=== PATIENT | female | born 1980 | race Caucasian/White ===

== ENCOUNTER 2017-07-29 07:23 | Day surgery (SDC) | payer BC, SELFPAY ==
--- NOTE | 2017-07-28 17:41 | PCM.HP.BLA ---
History and Physical Date of Admission: 07/29/17 HISTORY OF PRESENT ILLNESS: This is a 37-year-old woman, who presents with a recent flare up of right inguinal hidradenitis with extension into the vulval area. She had surgical excision back in 05/03. She states she noticed increasing nodularity and pain in this area near her previous scar. She denies any recent drainage. She denies any fever. Denies any trauma. She presents at this time for further evaluation and treatment. PAST MEDICAL HISTORY: Right inguinal hidradenitis. PAST SURGICAL HISTORY: Surgical preparation right inguinal wound with excision hidradenitis (8 cm2) - 04/26/14 MEDICATIONS: None. ALLERGIES: None. SOCIAL HISTORY: The patient smokes. The patient does not drink alcohol. The patient does not use aspirin. The patient does not use ibuprofen. FAMILY HISTORY: Positive for skin cancer. Also positive for colon cancer, cervical cancer, breast cancer. REVIEW OF SYSTEMS: GENERAL: Complains of fatigue. Denies fever and weight loss. EYES: Denies eye pain. ENT: Denies nasal congestion or sore throat. CARDIOVASCULAR: Complains of fatigue. Denies chest pain, lightheadedness and shortness of breath with exertion. RESPIRATORY: Denies cough and shortness of breath. The patient is a smoker. GASTROINTESTINAL: Denies nausea, vomiting, diarrhea or constipation. GENITOURINARY: Denies hematuria and urinary frequency. MUSCULOSKELETAL: Denies joint pain, back pain, stiffness, muscle weakness or arthritis. INTEGUMENTARY: Denies skin cancer. She has recent flare up of hidradenitis in the right inguinal area with extension into the vulval area. She has family history of skin cancer. NEUROLOGIC: Denies poor balance, headaches and weakness. PSYCHOLOGICAL: Denies anxiety and depression. ENDOCRINE: Denies excessive thirst or urination. Has family history of breast cancer. HEMATOLOGIC: Denies abnormal bruising and fevers. Denies anemia. PHYSICAL EXAMINATION: GENERAL: Alert and oriented. HEENT: Pupils equal, round and reactive to light. Extraocular muscles intact. Throat is clear. NECK: Supple. Nontender. No cervical adenopathy. LUNGS: Clear to auscultation. HEART: Regular rate and rhythm. ABDOMEN: Soft, nondistended. In the right inguinal area with extension into the vulval area is an area of tenderness and induration and nodularity. It measures 2.5 cm. It is located near her previous scar. No evidence of cellulitis, fluctuance or purulent drainage. EXTREMITIES: Full range of motion. No axillary adenopathy. No inguinal adenopathy. NEUROLOGIC: Cranial nerves II through XII grossly intact. IMPRESSION: 1. Recurrent right inguinal hidradenitis. 2. Recurrent right vulval hidradenitis. 3. Family history of skin cancer. 4. Smoker. PLAN: Recommended to the patient that we excise this area of recurrent hidradenitis in the right inguinal area and right vulval area. The previous scar may need to be excised as well. She has extension into the right vulval area and this area of hidradenitis will be excised as well. Will send tissue to pathology for analysis to rule out carcinoma. We also send tissue to microbiology for culture. A positive culture will necessitate antibiotic therapy. We will leave the wound open initially and proceed with wound care with a silver-type dressing or the wound VAC. After discharge, she can [facility]. If there is a plateau in the healing process, we can proceed with delayed closure with skin grafting. We will schedule the surgery under general anesthesia with an overnight stay in the hospital. The patient was informed of the risks and complications of the procedure including alternatives of surgery. These were discussed with her personally. She voiced understanding and wished to proceed. Some of the risks and complications were included in a form from the [employer]. I encouraged the patient to stop smoking as it may have deleterious effects on wound healing.
--- NOTE | 2017-07-29 | HID_PTH ---
PATIENT: JOSE FRANCISCO FRANCISCO LOC: [facility] – [place] U#:[id number] AGE/SX: 36/F ROOM: RE07/29/[address]: Dr. Best Mackey MD : [id number] BED: DIS: 07/29/2017 SPEC #: [id number] RECD: 07/29/17 14:40 STATUS: TAMMY EMETERIO #: [id number] IVON: 07/29/17 00:[address]: Best Mackey DEPT: SURGICAL PATHOLOGY RECD BY: Cecil Alarcon ENTERED: 07/29/17 14:41 SP TYPE: Hidradenit OTHR DR: Dr. Juancho Koch MD Tissues: Inguinal region, NOS Procedures: Special Stain Group I Surgery Specimen Level III AFB Stain (control) GMS Stain (control) HEADER OPERATION: Excision hidradenitis, right inguinal area extending into right vulva PRE-OP DIAGNOSIS: Recurrent right inguinal/vulval hidradenitis TISSUE SUBMITTED: Right inguinal/vulval hidradenitis MICROSCOPIC DIAGNOSIS Right inguinal/vulval hidradenitis: Skin with underlying tissue with acute and chronic inflammation and foreign body giant cell reaction. Special stains for acid fast bacilli and fungi are negative for organisms; matched controls are appropriate. MURRAY:milad 07/30/17 MICROSCOPIC DESCRIPTION Slides are reviewed. GROSS DESCRIPTION Received in fixative is one container labeled with the patient's name and designated right inguinal/vulval hidradenitis. The specimen consists of a piece of skin with underlying tissue measuring 3 x 0.5 cm and up to 3 cm in width. The specimen is bisected and do not reveal any mass lesion. The specimen is entirely submitted in two cassettes. / MURRAY:milad 07/29/17 TC:2 CPT: 14841, 32327 x2
[2017-07-29 07:50] LABS: Internal QC Validated? YES +Cl - CLEAR BKGD
[2017-07-29 07:51] LABS: Pregnancy, Urine Negative Negative
[2017-07-29 07:58] VITALS: BP 104/58; PULSE 64; RESP 14; TEMP 36.7; O2SAT 99; BMI 28.8
[2017-07-29] MEDS: Cefazolin 2 GM in 0.9% Normal Saline 100 ML IV (10:00)
[2017-07-29 11:08] VITALS: BP 104/58; BP 110/66; PULSE 75; RESP 16; TEMP 36.8; O2SAT 94
--- NOTE | 2017-07-29 11:09 | OP.PN_ITS ---
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 Recurrent right inguinal hidradenitis. 2. Recurrent right vulval hidradenitis. 3. Family history of skin cancer. 4. Smoker. Post-Operative Diagnosis: Same. Surgery/Procedure Performed:: 1. Excision recurrent hidradenitis right inguinal area with 7 cm layered closure. 2. Excision recurrent hidradenitis right vulval area (involving mons pubis and genitocrural area) with partial vulvectomy. Description of Surgical Findings:: This is a 37-year-old woman, who presents with a recent flare up of right inguinal hidradenitis with extension into the vulval area. She had surgical excision back in 05/03. She states she noticed increasing nodularity and pain in this area near her previous scar. She denies any recent drainage. She denies any fever. Denies any trauma. Today the patient underwent excision recurrent hidradenitis right inguinal area with 7 cm layered closure and excision recurrent hidradenitis right vulval area (involving mons pubis and genitocrural area) with partial vulvectomy. Estimated Blood Loss: 20 ml. Specimen's removed: Recurrent hidradenitis right inguinal area and vulval area to Pathology and Microbiology. Drains: None. Type of Anesthesia:: General - Admit VTE Documentation VTE Present on Admission: No VTE Mechan Device Prophylaxis: SCD's VTE Pharm Prophylaxis ordered?: No
[2017-07-29 11:15] VITALS: BP 104/58; BP 98/66; PULSE 59; RESP 16; O2SAT 96
--- NOTE | 2017-07-29 11:15 | PCM.DC ---
You will use the following diet at home:: No restrictions Discharge Activity: May not drive while taking narcotic pain medications., May Shower - in two days. May shower in (days): 2 May resume sexual activity in: 10-14 days Weight Bearing Status: Weight bearing as tolerated Call your doctor if your incision/area has: Continuous Slow Oozing, Sudden Increased Bleeding, Increased Pain/ Swelling, Increased Redness, Foul Smelling Discharge, Swelling at the incision site Call your doctor if you observe: Fever of 101 or Higher, Coldness, Increased Pain, Shortness of breath, Chest pain, Calf discomfort, Uncontrolled pain Suture Line Care: - - dry dressings daily. Change Dressing in (Days):: 1 - dry dressings daily. Cleanse incision/area with: - - may get incision wet in the shower in two days. Allergies/Adverse Reactions: Allergies No Known Allergies Allergy (Verified 07/22/17 15:06) Medications to take at Discharge Doxycycline [Vibramycin] 100 mg PO BID #28 cap 07/29/17 Oxycodone HCl/Acetaminophen [Percocet 5/325] 1 - 2 tab PO 4X/DAY PRN PRN 7 Days #50 tab 07/29/17 The following prescriptions were given: Oxycodone HCl/Acetaminophen [Percocet 5/325] 1 - 2 tab PO 4X/DAY PRN PRN 7 Days #50 tab PRN Reason: Pain Doxycycline [Vibramycin] 100 mg PO BID #28 cap Primary Care Physician: Juancho Koch [Primary Care Provider] - Please Follow Up With: Best Mackey MD When: one week. call [phone] for appt. Proposed Discharge Date: 07/29/17
[2017-07-29 11:30] VITALS: BP 104/58; BP 108/68; PULSE 62; RESP 16; O2SAT 96
[2017-07-29 11:36] VITALS: BP 104/58; BP 104/74; PULSE 69; RESP 16; TEMP 37.1; O2SAT 98
[2017-07-29 12:01] VITALS: BP 104/58
--- NOTE | 2017-07-29 22:02 | PCM.OPRPT ---
Report of Operation Date of Procedure: 07/29/17 Pre-Operative Diagnosis: 1. Recurrent right inguinal hidradenitis. 2. Recurrent right vulval hidradenitis. 3. Family history of skin cancer. 4. Smoker. Post-Operative Diagnosis: Same. Surgery/Procedure Performed:: 1. Excision recurrent hidradenitis right inguinal area with 7 cm layered closure. 2. Excision recurrent hidradenitis right vulval area (involving mons pubis and genitocrural area) with partial vulvectomy. Description of Surgical Findings:: This is a 37-year-old woman, who presents with a recent flare up of right inguinal hidradenitis with extension into the vulval area. She had surgical excision back in 05/03. She states she noticed increasing nodularity and pain in this area near her previous scar. She denies any recent drainage. She denies any fever. Denies any trauma. The patient was informed of the risks and complications of the procedure including alternatives of surgery. These were discussed with her personally. She voiced understanding and wished to proceed. Some of the risks and complications were included in a form from the [employer]. I encouraged the patient to stop smoking as it may have deleterious effects on wound healing. 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 Drains: None. Estimated Blood Loss (mL): 20 ml. Description of Procedure: Patient was taken to OR in supine position and was placed under general anesthesia. Her right inguinal and vulval areas were prepped and draped in the usual fashion. SCD's were placed for DVT prophylaxis. Perioperative antibiotics were given intravenously. Using xylocaine with epinephrine, the area of recurrent hidradenitis in the right inguinal area and vulval area was infiltrated. After waiting 5 minutes for the anesthetic to take effect, I excised the recurrent right inguinal hidradenitis through the subcutaneous tissue to the underlying muscular fascia. No pus was seen. Some indurated scar tissue was seen and some fat necrosis was seen. I then excised the recurrent right vulval hidradenitis involving the mons pubis and genitocrural area as a partial vulvectomy through the superficial subcutaneous tissue. No pus was seen. Some indurated scar tissue was seen and some fat necrosis was seen. Both wounds were combined into one larger oblique wound. Some of the tissue was sent to Pathology for analysis to rule out carcinoma. Some of the tissue was sent to Microbiology for culture. The wound was irrigated with saline. Hemostasis was obtained with electrocautery. I felt I could close the wound with sutures without too much tension and distortion. Using 3-0 Vicryl figure of eight interrupted sutures I closed the deeper fascia and subcutaneous tissue. The deep dermis and subcutaneous tissue was approximated with 3-0 Vicryl interrupted sutures. The skin was approximated with 4-0 Prolene simple interrupted and vertical mattress interrupted sutures. Histoacryl skin tissue adhesive was applied to the suture line. A dry dressing was applied. Patient tolerated the procedure well and was sent to the PACU in satisfactory condition. She will be sent home on antibiotics and pain medication. She will followup in the office in a week for a wound check and for discussion of the pathology report and the microbiology report. A positive culture may necessitate antibiotic modification. The sutures will be removed in 2-3 weeks. Grafts/Implants Used: None. - Complications None. - Admit VTE Documentation VTE Present on Admission: No VTE Mechan Device Prophylaxis: SCD's VTE Pharm Prophylaxis ordered?: No Code Visit Surgery Charges CPT - 40728 ICD-10 - L73.2, Z80.8, F17.200 92320 L73.2, Z80.8, F17.200
== END 2017-07-29 12:04 | disposition home or self-care (01) ==
LOC: SDC 07:24 → AC 07:25
PROVIDERS: Anesthesiology; Family Provider Family Medicine; PCP Family Medicine; Visit Provider Surgery
PROC: (CPT 11462; principal; 2017-07-29 08:45)
DX: L73.2 Hidradenitis suppurativa (principal); F17.200 Nicotine dependence, unspecified, uncomplicated; Z80.8 Family history of malignant neoplasm of other organs or systems
CPT/HCPCS: 11462; 56620; 81025; 87070; 87075; 87102; 87205; 87206; 88304; 88312; J7120; J2405

== ENCOUNTER → 2017-12-07 10:11 | Outpatient (CLI) | payer BC, SELFPAY ==
[2017-12-07 11:55] LABS: Absolute Lymphocyte Count 1.43 X10^3/ul (0.83-4.51); Absolute Neutrophil Count 2.6 X10^3/uL (2.0-7.7); Basophil# 0.02 X10^3/uL; Basophil% 0.4 % (0-1); Eosinophil# 0.04 X10^3/uL; Eosinophils% 0.9 % (0-5); Hematocrit 44.2 % (37-47); Hemoglobin 14.7 g/dl (12.0-15.0); Lymphocyte # 1.43 X10^3/ul (4.0); Lymphocyte % 31.7 % (19-41); Mean Corp Hgb Conc 33.3 g/gl (32-36); Mean Corpuscular Hgb 31.1 pg (27.0-32.0); Mean Corpuscular Volume 93.4 fL (81-99); Monocyte# 0.38 X10^3/uL; Monocyte% 8.4 % (0-10); Neutrophil # 2.64 X10^3/uL (2.7-7.7); Neutrophil % 58.6 % (47-70); Platelet Count 229 K/mm3 (150-450); RBC Distribution Width CV 12.7 % (11.6-14.6); RBC Distribution Width SD 43.2 fl (35.1-43.9); Red Blood Count 4.73 M/mm3 (4.2-5.4); White Blood Count 4.5 K/mm3 (4.4-11.0)
[2017-12-07 11:56] LABS: POSITIVE COUNT NO; POSITIVE DIFFERENTIAL NO; POSITIVE MORPHOLOGY NO
[2017-12-07 12:11] LABS: ALB/GLOB Ratio 1.2 RATIO (0.9-2.4); AST(SGOT) 15 U/L (15-37); Alanine Aminotransfer ALT/SGPT 24 U/L (13-56); Albumin, Serum 4.1 g/dL (3.2-5.0); Alkaline Phosphatase 56 U/L (45-117); Anion Gap 7 (5-15); BUN 15 mg/dL (7-18); BUN/Creat Ratio 17.4 RATIO (10-20); Calcium,Total 8.7 mg/dL (8.5-10.1); Chloride 106 mmol/L (98-107); Creatinine, Serum 0.86 mg/dL (0.55-1.02); EST Glomerular Filtration Rate 78 mL/min (>60); Est Glom Filt Rate - Afr Amer 94 mL/min (>60); Globulin 3.3 g/dL (2.2-4.2); Glucose 83 mg/dL (74-106); Potassium 4.2 mmol/L (3.5-5.1); Protein, Total 7.4 g/dL (6.4-8.2); Sodium Level 139 mmol/L (136-145)
== END ==
PROVIDERS: Family Provider Family Medicine; PCP Family Medicine; Visit Provider Physician Assistant
DX: M79.2 Neuralgia and neuritis, unspecified (principal)
CPT/HCPCS: 36415; 80053; 85025

== ENCOUNTER → 2024-01-21 | Outpatient (CLI) | payer BC, SELFPAY ==
--- NOTE | 2024-01-21 06:39 | MRI_ITS ---
STUDY: MR Orbits and Brain WO/W Contrast 01/23/2024 4:07 PM REASON FOR EXAM: Female, 43 years old. PSEUDOPAPILLEDEMA BILATERAL OPTIC NERVE COMPARISON: None TECHNIQUE: Standardized multiplanar fat and water weighted pulse sequences were obtained. MR Orbits and Brain WO/W Contrast 17cc of clariscan FINDINGS: Normal size of the ventricles and extra-axial spaces for the patient''s age. There is a single right frontal lobe small white matter hyperintensities, distributed throughout the deep white matter tracts of the cerebral hemispheres, consistent with mild chronic white matter ischemic changes. Normal cerebellum. Normal bilateral basal ganglia. Normal thalami. There is no extra-axial fluid accumulation. Normal flow voids within the major intracranial circulation suggesting patency by spin echo criteria. Normal sella turcica, pituitary gland, infundibular stalk, optic chiasm and hypothalamus. Normal tectal plate and pineal gland. Normal midbrain, marcy and medulla. Normal basal cisterns. Normal bilateral temporal bones. Normal bilateral internal auditory canals. No demonstrated orbital abnormality, within the constraints of a routine brain study. Normal visualized paranasal sinuses. Normal calvarium and skull base. Normal visualized soft tissue structures. Normal visualized upper cervical spine. Aspect score 10 MRI/Brain W/WO Contrast IMPRESSION: (NOT LISTED IN ORDER OF SIGNIFICANCE) Increased single FLAIR regions in the brain may signify early microvascular ischemic changes, a demyelinating process, vasculitis, or sequela related to migraines. Electronically Signed: Parrish Hayden MD at 16:10 EDT ,
== END | disposition home or self-care (01) ==
PROVIDERS: PCP Family Medicine; Referring Provider Ophthalmology; Visit Provider Ophthalmology
DX: H47.333 Pseudopapilledema of optic disc, bilateral (principal)
CPT/HCPCS: 70553; A9575